=== PATIENT | female | born 1980 | race Two or more races ===

== ENCOUNTER 2020-08-25 23:39 | Emergency (ER) | payer OTHER ==
[~2020-08-25] VITALS: Ht 147.3 cm; Wt 71.2 kg
[2020-08-26 03:30] VITALS: BP 140/75
== END 2020-08-26 06:57 | disposition home or self-care (01) ==
LOC: ER 23:39 → EDBD 23:39 → ER 08-26 06:57
DX: S39.012A Strain of muscle, fascia and tendon of lower back, initial encounter (principal); V43.52XA Car driver injured in collision with other type car in traffic accident, initial encounter; Y93.89 Activity, other specified; Y92.410 Unspecified street and highway as the place of occurrence of the external cause; Y99.8 Other external cause status
CPT/HCPCS: 72131